=== PATIENT | male | born 1990 | race African-American/Black ===

== ENCOUNTER 2016-05-01 16:59 | Emergency (ER) | payer OTHER ==
[~2016-05-01] VITALS: Ht 185.4 cm; Wt 74.8 kg
[2016-05-01 16:59] VITALS: BP 158/71
--- NOTE | 2016-05-01 17:46 | RAD ---
PROCEDURE Noncontrast head CT HISTORY Seizure. Abrasion involving the posterior aspect of the head. TECHNIQUE Noncontrast axial cross sectional CT scanning of the head was performed. One or more of the following individualized dose reduction techniques were utilized for this study: 1. Automated exposure control 2. Adjustment of the mA and/or kV according to patient size 3. Use of iterative reconstruction technique COMPARISON September 30, 2015. FINDINGS No acute intracranial hemorrhage or midline shift or mass-effect or hydrocephalus or extra-axial fluid collection is seen. Again seen is encephalomalacia of the inferior aspect of the right frontal lobe and the anterior aspect of the right temporal lobe. No new focal hypodense area or sulci effacement is seen to indicate an acute infarct or edema radiographically. No skull fracture or pneumocephalus is seen. No opacification of the mastoid sinuses or the paranasal sinuses is seen. The maxillary sinuses are not completely seen in this study. IMPRESSION No new intracranial abnormality is seen. Electronically signed by: Enoc Umanzor MD (May 01, 2016 17:44:43)
== END 2016-05-01 18:07 | disposition left against medical advice (07) ==
LOC: ER 16:59
DX: R56.9 Unspecified convulsions (principal); F17.200 Nicotine dependence, unspecified, uncomplicated; F12.10 Cannabis abuse, uncomplicated
CPT/HCPCS: 70450; 99281-25

== ENCOUNTER 2020-06-28 06:38 | Inpatient (IN) | payer SELFPAY ==
[2020-06-28 07:00] VITALS: BP 158/64
--- NOTE | 2020-06-28 07:06 | NUR ---
Patient brought from [facility] to [facility] via ambulance after having 3 seizures and falling prior to EMS called being taken to [facility]. Patient has a history of seizures and takes Keppra at home. Patient stating that he wants to leave the hospital. Refuses to leave monitoring equipment on.
[2020-06-28] MEDS ORDERED: LEVE500T6 PO (07:26)
--- NOTE | 2020-06-28 08:15 | NUR ---
Patient left against medical advice after seen by Dr. Quintero. Accompanied by brother.
--- NOTE | 2020-06-28 08:54 | SSS ---
ADMIT DATE: 06/28/2020 The patient is a 30-year-old -[place] male patient who apparently brought to the Emergency Room of [facility] with tonic-clonic seizures x 5. The patient had 2 tonic-clonic seizures that were witnessed by the paramedics and he received 5 mg of Versed IV x 2. The patient has seizure disorder and normally has one breakthrough seizures a month. He is on Keppra 1000 mg twice a day and reportedly has been taking them. The patient was snoring on arrival, hypoxic to the Emergency Room of [facility]. He did tolerate nasal trumpet with no gag, did not respond to noxious stimuli. Discussion with his significant other stated that the patient had 3 tonic-clonic seizures tonight and that she witnessed, on the 2nd earlier seizure, had regained alertness and he had 3rd seizure. However, he fell out of bed and hit his head on the left. The last tonic-clonic seizure persisted for several minutes and did not regain consciousness after the 3rd seizure therefore she called the paramedics to have him evaluated. She advised he frequently becomes violent in postictal state. The patient significantly stated that he has breakthrough seizures at least once a month while taking medication. In any case, the patient was evaluated in the Emergency Room, was loaded with 1000 mg of Keppra and had a CT scan of the head and cervical spine, which showed no acute intracranial finding, stable right greater than left frontal encephalomalacia consistent with remote trauma. No cervical fracture or malalignment. Given that he has multiple episodes of what looked like status epilepticus, I recommended the patient to come to the [facility] as he might require intubation and mechanical ventilation. By the time the patient arrived here, he became extremely agitated. He was awake, alert, moving all his extremities, standing out of the bed, insisting he wants to go home. I attempted to convince him otherwise but he patient refused and despite interference of that discussion with his brother he was not willing to stay and insisted to go home so I asked he signed the form that he left against medical advice and left the unit escorted by the security team. ZEENAT NELSON MD DR: ERIN/manav JOB#: [id number] / [id number]
== END 2020-06-28 08:20 | disposition left against medical advice (07) | DRG 101 ==
LOC: 1 WEST ICU 06:38
PROVIDERS: ADMIT Internal Medicine; ATTEND Internal Medicine
DX: G40.401 Other generalized epilepsy and epileptic syndromes, not intractable, with status epilepticus (principal); Z88.8 Allergy status to other drugs, medicaments and biological substances; R09.02 Hypoxemia; Z53.29 Procedure and treatment not carried out because of patient's decision for other reasons; W06.XXXA Fall from bed, initial encounter; Y93.89 Activity, other specified; Y92.89 Other specified places as the place of occurrence of the external cause; Y99.8 Other external cause status; G93.89 Other specified disorders of brain
CPT/HCPCS: G0378